=== PATIENT | male | born 1980 | race Caucasian/White ===

== ENCOUNTER 2019-05-22 00:19 | Emergency (ER) | payer SELFPAY | END 2019-05-22 01:38 | disposition home or self-care (01) | LOC: ERS 00:19 | DX: R23.8 Other skin changes (principal); F17.210 Nicotine dependence, cigarettes, uncomplicated | CPT/HCPCS: 99283 ==

== ENCOUNTER 2019-05-22 02:19 | Emergency (ER) | payer SELFPAY | END 2019-05-22 02:44 | disposition home or self-care (01) | LOC: ERS 02:19 | DX: T69.021A Immersion foot, right foot, initial encounter (principal); F17.210 Nicotine dependence, cigarettes, uncomplicated | CPT/HCPCS: 99281 ==